=== PATIENT | female | born 1960 | race Caucasian/White ===

== ENCOUNTER → 2019-10-14 13:12 | Outpatient (CLI) | payer OTHER | END | disposition home or self-care (01) | LOC: D.MRI 13:12 | PROVIDERS: ATTEND Orthopaedic Surgery | DX: S83.232A Complex tear of medial meniscus, current injury, left knee, initial encounter (principal) ==

== ENCOUNTER 2019-11-14 07:52 | Day surgery (SDC) | payer MEDICAID ==
[2019-11-11 09:49] LABS: HEMATOCRIT 41.8 % (36.0-48.0); HEMOGLOBIN 14.1 g/dL (12-16); MCH 31.5 pg (26.0-34.0); MCHC 33.7 g/dL (31.0-37.0); MCV 93.5 fL (80.0-100.0); MEAN PLATELET VOLUME 8.9 fL (7.4-10.4); RBC 4.47 10x6/uL (4.00-5.40); RDW 13.5 % (11.5-14.5); WBC 5.9 10x3/uL (4.8-10.8)
[2019-11-11 10:01] LABS: CALC OSMOLALITY 284 mosm/kg (275-300); CARBON DIOXIDE 31.3 mmol/L (21.0-32.0); CHLORIDE - SERUM 103 mmol/L (98-107); CREATININE - SERUM 0.8 mg/dL (0.6-1.3); GLUCOSE 100 mg/dL (74-106); POTASSIUM - SERUM 4.1 mmol/L (3.5-5.1); SODIUM 142 mmol/L (136-145); UREA NITROGEN 19 mg/dL (7-18); eGFR NON AFRICAN AMERICAN 78 mL/min (90-120)
[~2019-11-14] VITALS: Ht 172.7 cm; Wt 108.9 kg
[~2019-11-14 07:52] MED LIST: FUROSEMIDE20 MG PO; LEVOTHYROXINE137 MCG PO
[2019-11-14 08:33] VITALS: BP 104/57; Ht 172.7 cm; Wt 108.9 kg
[2019-11-14] MEDS ORDERED: HYDROCODON-ACE1 EA10 PO (10:04)
--- NOTE | 2019-11-15 10:43 | OP ---
PATIENT NAME: ALEM VINES MEDICAL RECORD: [id number] :60 LOCATION:D.OPS ADMISSION DATE: SURGEON: NICOLE ARRIETA MD DATE OF OPERATION: 11/14/2019 PREOPERATIVE DIAGNOSES: 1. Medial meniscus tear of the left knee. 2. Lateral meniscus tear of the left knee. POSTOPERATIVE DIAGNOSES: 1. Medial meniscus tear of the left knee. 2. Lateral meniscus tear of the left knee. PROCEDURE: 1. Arthroscopic partial medial meniscectomy of the left knee. 2. Arthroscopic partial lateral meniscectomy of the left knee. SURGEON: Nicole Arrieta MD PERSONAL LINES UNDERWRITER: SARA Ryan INTRAOPERATIVE COMPLICATIONS: None. SUMMARY OF PATHOLOGIC FINDINGS: On the posterior lateral aspect of the medial femoral condyle, the patient had a large area of articular surface that had been sensitive chewed up by the torn lateral meniscus. She did have an arthritic osteophyte here that was taken down as it did seem to be engaging with the torn portions of the medial meniscus. On the lateral side, the patient had a large anterolateral meniscal tear with a large flap. No chondromalacia was seen in the lateral compartment. 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 OPERATIVE SUMMARY IN DETAIL: After obtaining the appropriate preoperative orthopedic surgery consent as well as anesthetic consultation, evaluation and clearance, the patient was brought to the operating room and placed on the operating table in a supine position. After general laryngeal mask airway was administered, tourniquet was placed on the proximal aspect of the left lower extremity. Left lower extremity was then prepped and draped in routine sterile fashion. The leg was elevated and exsanguinated, tourniquet was inflated to 350 mmHg. Routine inferolateral portal was established followed by a superomedial portal. Please note that the appropriate timeout had been taken prior to beginning of the case. Diagnostic arthroscopy did reveal the above findings. The medial meniscus was first approached. The posterior lateral tear of the medial meniscus was taken back to the undersurface tear and then it was gently debrided using the resector after a meniscotome resection. The small arthritic appearing system was then gently taken down with a resector for a smooth transition. The knee was then placed in the [id number] position, the lateral meniscus tear was then treated with a combination of meniscotomes as well as resector to take down the unstable portion of the lateral meniscus. Having completed this, the knee was insufflated with 80 mg of Depo-Medrol and 30 cc of 0.25% Marcaine with epinephrine. Arthroscopy portals were closed in routine interrupted fashion using 4-0 Prolene by SARA Ryan. Sterile dressings were applied. Tourniquet was deflated. The patient was awakened and taken to the recovery room in stable condition. All final needle and sponge counts were correct. OPERATIVE REPORT [id number] ALEM VINES TRANSINT:[id number] Voice Confirmation ID: [id number] DOCUMENT ID: [id number] MEENAKSHI NARAYANAN, NICOLE LEW at 1043 CC: [id number] DICTATION DATE: 11/14/19 1014 UNDERLINER: 11/14/19 1453 DEP [facility] [place] 11/14/19 [id number] [place] [address]
== END 2019-11-14 10:50 | disposition home or self-care (01) ==
LOC: D.OPS 07:52 → D.PAN 09:45 → D.OPS 09:45
PROVIDERS: Anesthesiology; ATTEND Orthopaedic Surgery
DX: S83.242A Other tear of medial meniscus, current injury, left knee, initial encounter (principal); S83.282A Other tear of lateral meniscus, current injury, left knee, initial encounter; X58.XXXA Exposure to other specified factors, initial encounter; M17.9 Osteoarthritis of knee, unspecified